=== PATIENT | male | born 1945 | race Caucasian/White ===

== ENCOUNTER 2021-07-10 08:36 | Inpatient (IN) | payer MEDICARE, BC ==
[~2021-07-10] VITALS: Ht 183 cm; Wt 72.3 kg
[2021-07-10 08:40] VITALS: BP 87/53
[2021-07-10 09:12] LABS: BASO # 0.1 10*3/uL (0.0-0.1); BASO % 0.7 % (0.0-1.0); EOS # 0.5 10*3/uL (0.0-0.4); EOS % 6.7 % (1.0-4.0); HEMATOCRIT 34.1 % (42.0-52.0); LYMPH # 1.6 10*3/uL (1.3-4.4); LYMPH % 23.7 % (27.0-41.0); MEAN CELL VOLUME 98.6 fl (80.0-94.0); MEAN CORPUSCULAR HGB 31.2 pg (27.0-31.0); MEAN CORPUSCULAR HGB CONC 31.7 g/dl (33.0-37.0); MEAN PLATELET VOLUME 10.2 fl (9.6-12.3); MONO # 0.4 10*3/uL (0.1-1.0); MONO % 5.4 % (3.0-9.0); NEUT # 4.3 10*3/uL (2.3-7.9); NEUT % 63.2 % (47.0-73.0); PLATELET COUNT AUTOMATED 167 10*3/uL (130-400); RED BLOOD COUNT 3.46 10*6/uL (4.50-5.90); RED CELL DISTRI WIDTH 11.9 % (0-14.5); WHITE BLOOD COUNT 6.8 10*3/uL (4.8-10.8)
[2021-07-10 09:27] LABS: ACT PARTIAL THROMBO TIME 21.1 SECONDS (20.0-32.1); INTERNATIONAL NORM RATIO 1.2 (2.0-3.5)
[2021-07-10 09:33] LABS: ALBUMIN 3.3 gm/dl (3.1-4.5); CREATININE 1.44 mg/dL (0.70-1.30); POTASSIUM 4.2 mmol/L (3.5-5.1); TOTAL PROTEIN 7.2 gm/dL (6.4-8.2)
[2021-07-10 10:22] LABS: BILIRUBIN Negative (Negative); BLOOD Trace-Intact (Negative); CLARITY Clear (Clear); COLOR Yellow (Yellow); GLUCOSE Negative (Negative); KETONE Negative (Negative); LEUKO ESTERASE Negative (Negative); NITRITE Negative (Negative); SPECIFIC GRAVITY 1.015 (1.001-1.030)
[2021-07-10 10:42] LABS: HYALINE CAST 0-2; MUCOUS 1+; RBC 16-20 rbc/hpf (0-2); WBC 0-2 wbc/hpf (0-5)
[2021-07-10 13:13] VITALS: BP 92/62
[2021-07-10] MEDS ORDERED: ZESTORETIC 10-1 EACH PO (13:17)
[2021-07-10] MEDS ORDERED: DONEPEZIL HCL10 MG PO (13:17)
[2021-07-10 16:00] VITALS: BP 129/86
[2021-07-10 17:30] VITALS: BP 129/86
[2021-07-10 20:00] VITALS: BP 118/76
[2021-07-11] VITALS: BP 94/60
[2021-07-11 06:49] LABS: ALBUMIN 3.3 gm/dl (3.1-4.5); CREATININE 2.32 mg/dL (0.70-1.30); TOTAL PROTEIN 6.8 gm/dL (6.4-8.2)
[2021-07-11 07:16] LABS: BASO % 0.1 % (0.0-1.0); EOS % 0.4 % (1.0-4.0); HEMATOCRIT 28.8 % (42.0-52.0); LYMPH # 1.5 10*3/uL (1.3-4.4); LYMPH % 20.8 % (27.0-41.0); MEAN CELL VOLUME 96.3 fl (80.0-94.0); MEAN CORPUSCULAR HGB 31.1 pg (27.0-31.0); MEAN CORPUSCULAR HGB CONC 32.3 g/dl (33.0-37.0); MEAN PLATELET VOLUME 9.4 fl (9.6-12.3); MONO # 0.6 10*3/uL (0.1-1.0); NEUT # 4.9 10*3/uL (2.3-7.9); NEUT % 69.4 % (47.0-73.0); PLATELET COUNT AUTOMATED 119 10*3/uL (130-400); RED BLOOD COUNT 2.99 10*6/uL (4.50-5.90); RED CELL DISTRI WIDTH 12.3 % (0-14.5); WHITE BLOOD COUNT 7.1 10*3/uL (4.8-10.8)
[2021-07-11 07:18] LABS: POTASSIUM 5.4 mmol/L (3.5-5.1)
[2021-07-11 07:49] LABS: VITAMIN D, 25-HYDROXY 13.5 ng/mL (30-100)
[2021-07-11 08:00] VITALS: BP 119/63
[2021-07-11 12:00] VITALS: BP 118/65
[2021-07-11 16:00] VITALS: BP 112/69
[2021-07-11 20:00] VITALS: BP 119/63
[2021-07-12] VITALS: BP 111/83
[2021-07-12 06:49] LABS: BASO % 0.2 % (0.0-1.0); EOS # 0.1 10*3/uL (0.0-0.4); EOS % 0.9 % (1.0-4.0); HEMATOCRIT 29.7 % (42.0-52.0); LYMPH # 1.1 10*3/uL (1.3-4.4); LYMPH % 13.8 % (27.0-41.0); MEAN CELL VOLUME 99.3 fl (80.0-94.0); MEAN CORPUSCULAR HGB 31.1 pg (27.0-31.0); MEAN CORPUSCULAR HGB CONC 31.3 g/dl (33.0-37.0); MONO # 0.8 10*3/uL (0.1-1.0); MONO % 9.4 % (3.0-9.0); NEUT % 75.2 % (47.0-73.0); PLATELET COUNT AUTOMATED 115 10*3/uL (130-400); RED BLOOD COUNT 2.99 10*6/uL (4.50-5.90); RED CELL DISTRI WIDTH 12.4 % (0-14.5)
[2021-07-12 07:07] LABS: CREATININE 2.39 mg/dL (0.70-1.30); POTASSIUM 4.9 mmol/L (3.5-5.1)
[2021-07-12 08:00] VITALS: BP 107/70
[2021-07-12 12:00] VITALS: BP 110/65
[2021-07-12] MEDS ORDERED: VITAMIN D3125 MC1 PO ×2 (15:58→16:03)
[2021-07-12] MEDS ORDERED: RISPERIDONE0.5 MG PO ×2 (15:58→16:03)
[2021-07-12] MEDS ORDERED: NAMENDA-5 PO ×2 (15:58→16:03)
[2021-07-12] MEDS ORDERED: RISPERIDONE0.25 M2 PO ×2 (15:58→16:03)
[2021-07-12 16:00] VITALS: BP 107/66
[2021-07-12 20:00] VITALS: BP 105/69
[2021-07-13] VITALS: BP 103/59
[2021-07-13 08:00] VITALS: BP 125/90
[2021-07-13 10:36] LABS: CREATININE 1.95 mg/dL (0.70-1.30); POTASSIUM 4.4 mmol/L (3.5-5.1)
[2021-07-13 12:00] VITALS: BP 121/78
[2021-07-13] MEDS ORDERED: LISINOPRIL10 M1 PO (13:23)
[2021-07-13] MEDS ORDERED: METOPROLOL SUCC25 M2 PO (13:23)
[2021-07-13] MEDS ORDERED: LIPITOR20 MG PO (13:27)
== END 2021-07-13 15:15 | DRG 312 ==
LOC: ED 08:36 → EDHOLD 13:16 → 5E 13:16
PROVIDERS: Emergency Medicine; Internal Medicine; Registered Nurse; Student in an Organized Health Care Education/Training Program; ADMIT Internal Medicine; ATTEND Internal Medicine
DX: I95.1 Orthostatic hypotension (principal); N17.0 Acute kidney failure with tubular necrosis; E44.0 Moderate protein-calorie malnutrition; F10.27 Alcohol dependence with alcohol-induced persisting dementia; F02.81 Dementia in other diseases classified elsewhere, unspecified severity, with behavioral disturbance; D50.9 Iron deficiency anemia, unspecified; E86.1 Hypovolemia; R29.6 Repeated falls; F41.9 Anxiety disorder, unspecified; G30.9 Alzheimer's disease, unspecified; E78.2 Mixed hyperlipidemia; Z68.21 Body mass index [BMI] 21.0-21.9, adult